=== PATIENT | female | born 1985 | race Two or more races ===

== ENCOUNTER 2021-02-04 16:18 | Emergency (ER) | payer OTHER ==
[~2021-02-04] VITALS: Ht 154.9 cm; Wt 52.8 kg
--- NOTE | 2021-02-04 16:22 | NUR ---
MONSERRAT RN: CALLED PT NO ANSWER
--- NOTE | 2021-02-04 16:46 | NUR ---
PT C/O OF LEFT SIDED FLANK PAIN WITH VOMITTING SINCE YESTERDAY. PT ATTACHED GTO MONITORS, VSS, PT APPEARS IN PAIN. BED IN LOW POSITON, RAILS ENGAGED. CALL LIGHT ON LAP. COUSIN AT BEDSIDE. WCTM
[2021-02-04] MEDS ORDERED: HYDROmorphone 1 MG/ML, 1ML INJ IVPush PRN (17:00)
[2021-02-04] MEDS ORDERED: ONDANSETRON 2MG/ML, 2ML IVPush ONE (17:00)
[2021-02-04] MEDS ORDERED: SODIUM CHLORIDE FLUSH 10ML SYR IVF ONE (17:00)
[2021-02-04] MEDS ORDERED: ONDANSETRON 2MG/ML, 2ML ONE (17:07)
[2021-02-04] MEDS ORDERED: HYDROmorphone 1 MG/ML, 1ML INJ ONE (17:07)
--- NOTE | 2021-02-04 17:42 | NUR ---
PT OFF UNIT IN US
[2021-02-04 17:44] LABS: MEAN CORPUSCULAR HGB CONC 35.1 g/dL (32.4-35.8); MEAN PLATELET VOLUME 7.7 fL (7.4-10.4); PLATELET COUNT 294 x10^3/uL (130-400); RED BLOOD COUNT 5.05 x10^6/uL (3.82-5.3)
[2021-02-04 17:48] LABS: MICROSCOPIC AUTO
--- NOTE | 2021-02-04 17:50 | NUR ---
Patient is resting comfortably in bed. Bed in lowest, rails engaged, call light on lap. Vital Signs within normal limits. WCTM. PT STATES FEELING BETTER AND PAIN IS A LOT BETTER.
[2021-02-04 17:57] LABS: ALANINE AMINOTRANSFERASE 18 U/L (12-78); ALBUMIN 4.2 g/dL (3.4-5.0); ANION GAP 7 mmol/L (5-15); CALCIUM 9.6 mg/dL (8.5-10.1); CHLORIDE 104 mmol/L (98-107); CREATININE 0.73 mg/dL (0.55-1.02)
[2021-02-04 18:01] LABS: ALKALINE PHOSPHATASE 64 U/L (45-117); BILIRUBIN,TOTAL 0.9 mg/dL (0.2-1.0); TOTAL PROTEIN 8.6 g/dL (6.4-8.2)
[2021-02-04 18:21] LABS: <PLATELET ESTIMATE> ADEQUATE; <PLT MORPHOLOGY> NORMAL PLT MORPH; <RBC MORPHOLOGY> NORMAL; BANDS%(MANUAL) 12 % (0-7); EOS#(MANUAL) 0.14 x10^3/uL (0.0-0.4); EOS% (MANUAL) 1 % (1-7); LYMPH#(MANUAL) 0.99 x10^3/uL (1-3.4); LYMPHS% (MANUAL) 7 % (22-44); SEG#(MANUAL) 11.36 x10^3/uL (1.8-6.8); SEGS% (MANUAL) 80 % (42-75)
--- NOTE | 2021-02-04 19:42 | NUR ---
Patient is resting comfortably in bed. Bed in lowest, rails engaged, call light on lap. Vital Signs within normal limits. WCTM.
[2021-02-04] MEDS ORDERED: HYDROmorphone 2 MG/ML, 1ML ONE (19:49)
[2021-02-04] MEDS ORDERED: HYDROmorphone 2 MG/ML, 1ML IVPush PRN (20:00)
[2021-02-04] MEDS ORDERED: CEFTRIAXONE 1,000 MG in DEXTROSE 5% 50 ML IVPB ONE (20:00)
[2021-02-04 20:22] VITALS: BP 141/86
== END 2021-02-04 20:38 | disposition home or self-care (01) ==
LOC: ED 18:00
DX: N30.00 Acute cystitis without hematuria (principal); R10.32 Left lower quadrant pain
CPT/HCPCS: 36415; 74176; 76830; 80053; 81001; 84703; 85025; 87086; 96365; 96375; 96376; 99285; J0696; J1170; J2405